=== PATIENT | female | born 1945 | race Caucasian/White ===

== ENCOUNTER 2018-10-21 14:39 | Emergency (ER) | payer MEDICARE, OTHER ==
[~2018-10-21] VITALS: Ht 165.1 cm; Wt 56.0 kg
[2018-10-21] MEDS ORDERED: MORPHINE SULFATE 4 MG/ML CPJ (NOT FOR IM USE) IV ONE ×2 (15:00→18:30)
[2018-10-21] MEDS ORDERED: MORPHINE SULFATE 10 MG/ML CPJ IV NR (15:08)
[2018-10-21 16:04] LABS: BASOPHILS % 0.5 % (0.0-2.0); EOSINOPHILS % 0.2 % (0.0-5.0); HEMATOCRIT. 38.5 % (36.0-48.0); LYMPHOCYTES % 8.8 % (20.0-50.0); MEAN CORPUSCULAR HEMOGLOBIN 26.5 pg (28.0-32.0); MEAN CORPUSCULAR VOLUME 78.8 fL (81.0-99.0); MEAN PLATELET VOLUME 9.9 fl (7.4-10.4); MONOCYTES % 7.7 % (2.0-8.0); NEUTROPHILS % 82.8 % (40.0-76.0); PLATELET 335 x1000/uL (130-400); RED BLOOD CELL COUNT 4.89 mill/uL (4.2-5.4); RED CELL DISTRIBUTION WIDTH 17.1 % (11.6-14.6)
[2018-10-21 16:08] LABS: CHLORIDE 100 mEq/L (98-107); INR 1.1; PROTHROMBIN TIME 10.7 sec (9.1-11.1)
[2018-10-21] MEDS ORDERED: SODIUM CHLORIDE 0.9% 1,000 ML IV ONE (17:18)
[2018-10-21] MEDS ORDERED: INSULIN REGULAR (HUMULIN R) 300UNITS/3ML SUBCUT ONE (17:30)
[2018-10-21] MEDS ORDERED: MORPHINE SULFATE 2 MG/ML CPJ (NOT FOR IM USE) IV NR (18:45)
[2018-10-21] MEDS ORDERED: LOSA50TA20 MT (19:20)
[2018-10-21] MEDS ORDERED: ATOR20TA65 MT (19:20)
[2018-10-21] MEDS ORDERED: IBUP-2271 MT (19:20)
[2018-10-21] MEDS ORDERED: GLIP5TAB12 MT (19:20)
[2018-10-21] MEDS ORDERED: METF-416 MT (19:20)
[2018-10-21] MEDS ORDERED: MULT-1116 MT (19:20)
[2018-10-21] MEDS ORDERED: RANI150C12 MT (19:20)
[2018-10-21] MEDS ORDERED: ASPI-1159 MT (19:20)
[2018-10-21] MEDS ORDERED: RALO60TA13 MT (19:20)
[2018-10-21] MEDS ORDERED: AMLO10TA80 MT (19:20)
[2018-10-21 19:21] LABS: CHLORIDE 104 mEq/L (98-107)
[2018-10-21 19:23] VITALS: BP 143/77
== END 2018-10-21 19:45 | disposition short-term general hospital (02) ==
LOC: ER 15:02 → CANRESERV 16:00 → ENRESERV 16:00 → CANBEDREQ 18:23 → ER 19:45
DX: S72.002A Fracture of unspecified part of neck of left femur, initial encounter for closed fracture (principal); E11.65 Type 2 diabetes mellitus with hyperglycemia; E78.00 Pure hypercholesterolemia, unspecified; I10 Essential (primary) hypertension; Z79.899 Other long term (current) drug therapy; W01.0XXA Fall on same level from slipping, tripping and stumbling without subsequent striking against object, initial encounter; Y93.01 Activity, walking, marching and hiking; Y92.89 Other specified places as the place of occurrence of the external cause; Y99.8 Other external cause status
CPT/HCPCS: 36415; 71045; 73502; 80048; 80053; 82962; 85025; 85610; 93005; 96361; 96374; 96375; 96376; 99285; J1815; J2270; J7030